=== PATIENT | male | born 2000 | race Two or more races ===

== ENCOUNTER 2022-12-23 20:48 | Emergency (ER) | payer OTHER ==
[~2022-12-23] VITALS: Ht 157.5 cm; Wt 109.3 kg
[2022-12-23] MEDS ORDERED: TUSNEL LIQUID178 ML PO (23:32)
[2022-12-23] MEDS ORDERED: ZITHROMAX500 MG PO (23:32)
[2022-12-23] MEDS ORDERED: PROAIR RESPICL90 MCG IH (23:32)
[2022-12-23] MEDS ORDERED: MEDROLPACK PO (23:32)
== END 2022-12-24 00:06 | disposition home or self-care (01) ==
LOC: ER 20:48
DX: U07.1 COVID-19 (principal); R00.0 Tachycardia, unspecified